=== PATIENT | female | born 1965 | race American Indian/Alaskan Native ===

== ENCOUNTER 2017-02-23 10:58 | Emergency (ER) | payer SELFPAY ==
[2017-02-23 11:11] VITALS: BP 203/135
--- NOTE | 2017-02-23 11:46 | Emergency Department Report ---
- General Chief Complaint: Extremity Injury, Lower Stated Complaint: RIGHT FOOT PAIN Time Seen by Provider: 02/23/17 11:34 Source: patient Mode of arrival: Ambulatory Limitations: No Limitations - History of Present Illness Initial Comments: 52 years old female history of high blood pressure she stated that 2 weeks ago I am medical problem on her right foot and she sustained a small wound she went to [facility] they told to just keep cleaning it and it should heal patient stated that she has been cleaning the wound 4 times a day and the wound is not healing and she wanted the wound to be checked. Patient denied any fever nausea or vomiting. -: week(s) (2 week) Extremity Location: Right: Foot Place: home - Related Data Previous Rx's Medication Instructions Recorded Last Taken Type Cephalexin [Keflex] 500 mg PO Q8HR #28 cap 02/23/17 Unknown Rx Fluconazole [Diflucan] 100 mg PO QDAY #2 bottle 02/23/17 Unknown Rx Allergies Allergy/AdvReac Type Severity Reaction Status Date / Time No Known Allergies Allergy Unverified 02/23/17 11:07 ED Review of Systems ROS: Stated complaint: RIGHT FOOT PAIN Other details as noted in HPI Comment: All other systems reviewed and negative Constitutional: denies: chills, fever Respiratory: denies: cough Cardiovascular: denies: chest pain, palpitations Gastrointestinal: denies: abdominal pain, nausea, vomiting ED Past Medical Hx - Past Medical History Hx Hypertension: Yes - Surgical History Past Surgical History?: No - Social History Smoking Status: Never Smoker Substance Use Type: None - Medications Home Medications: Home Medications Medication Instructions Recorded Confirmed Last Taken Type Cephalexin [Keflex] 500 mg PO Q8HR #28 cap 02/23/17 Unknown Rx Fluconazole [Diflucan] 100 mg PO QDAY #2 bottle 02/23/17 Unknown Rx ED Physical Exam - General Limitations: No Limitations General appearance: alert - Respiratory Respiratory exam: Present: normal lung sounds bilaterally - Cardiovascular Cardiovascular Exam: Present: regular rate, normal heart sounds - GI/Abdominal GI/Abdominal exam: Present: soft. Absent: tenderness, guarding - Expanded Lower Extremity Exam Right Foot/Toe exam: Present: abrasion - Neurological Exam Neurological exam: Present: alert, oriented X3, CN II-XII intact ED Course Vital Signs 02/23/17 11:07 Temperature 97.7 F Pulse Rate 70 Respiratory 16 Rate Blood Pressure 203/135 O2 Sat by Pulse 100 Oximetry ED Medical Decision Making - Medical Decision Making Obviously the wound is not healing because of continuous scrubbing of the wound for the pelvis of preventing infection, I advised patient to not to scrub the wounds and give the current granulation tissue time to heal. On on exam the wound does have some granulation tissue there is no discharge no evidence of infection. Critical care attestation.: If time is entered above; I have spent that time in minutes in the direct care of this critically ill patient, excluding procedure time. ED Disposition Clinical Impression: Visit for wound care Disposition: DC-01 TO HOME OR SELFCARE Is pt being admited?: No Condition: Stable Instructions: Acute Wound Care (ED) Referrals: PRIMARY CARE, [Primary Care Provider] - 3-5 Days
== END 2017-02-23 12:26 | disposition home or self-care (01) ==
LOC: ED 10:58
DX: S91.301A Unspecified open wound, right foot, initial encounter (principal); I10 Essential (primary) hypertension; W22.8XXA Striking against or struck by other objects, initial encounter; Y93.9 Activity, unspecified; Y99.9 Unspecified external cause status; Y92.89 Other specified places as the place of occurrence of the external cause
CPT/HCPCS: 82962; 99282

== ENCOUNTER 2019-08-31 17:56 | Emergency (ER) | payer SELFPAY ==
[2019-08-31 18:07] VITALS: BP 175/69
--- NOTE | 2019-08-31 18:31 | Emergency Department Report ---
Blank Doc - Documentation Documentation: 54-year-old female that presents with right knee pain s/p fall. This initial assessment/diagnostic orders/clinical plan/treatment(s) is/are subject to change based on patient's health status, clinical progression and re- assessment by fellow clinical providers in the ED. Further treatment and workup at subsequent clinical providers discretion. Patient/guardians urged not to elope from the ED as their condition may be serious if not clinically assessed and managed. Initial orders include: 1- Patient sent to [facility] for further evaluation and treatment 2- xrays
--- NOTE | 2019-08-31 19:33 | XRay Report ---
Right knee, 2 views INDICATION: Knee pain FINDINGS: The joint space is maintained. No fracture or joint effusion. No spurring or arthritic mcnulty ge. No erosions or chondrocalcinosis. No significant abnormality. Signer Name: Brian Her MD Signed: 08/31/2019 7:29 PM Workstation Name: [id number]
== END 2019-08-31 21:30 | disposition home or self-care (01) ==
LOC: ED 17:56
DX: M25.561 Pain in right knee (principal); Z53.21 Procedure and treatment not carried out due to patient leaving prior to being seen by health care provider